=== PATIENT | female | born 1965 | race Caucasian/White ===

== ENCOUNTER 2017-04-13 06:51 | Day surgery (SDC) | payer BC ==
[2017-04-13] MEDS ORDERED: Lactated Ringers 1,000 ML IV SCH (07:30)
[2017-04-13] MEDS ORDERED: Midazolam 1 MG/ML 2 ML SDV IV ONE (08:00)
[2017-04-13] MEDS ORDERED: Lidocaine 2% 100 MG/5 ML Syringe IVPUSH ONE (08:00)
[2017-04-13] MEDS ORDERED: Propofol 200 MG/20 ML SDV IV ONE (08:00)
--- NOTE | 2017-04-13 08:24 | PCM.OPNOTE ---
- General Post-Op/Procedure Note Date of Surgery/Procedure: 04/13/17 Operative Procedure(s): c scope Findings: normal exam Pre Op Diagnosis: screening for colon cancer Post-Op Diagnosis: nl scope Anesthesia Technique: MAC Primary Surgeon: Raji Lawler Anesthesia Provider: Sharon Figueredo Pathology: none Complications: None Condition: Good Free Text/Narrative:: see dictation
[2017-04-13 09:12] VITALS: BP 147/97
--- NOTE | 2017-04-13 10:09 | OR ---
DATE OF OPERATION: 04/13/2017 SURGEON: Raji Lawler MD PROCEDURE PERFORMED: Colonoscopy. PREOPERATIVE DIAGNOSIS: Colon cancer screening. POSTOPERATIVE DIAGNOSIS: Normal exam. INDICATIONS FOR PROCEDURE: This is a 52-year-old white female, who presents for initial screening colonoscopy. She was offered and accepted the same. DESCRIPTION OF OPERATION: After an excellent IV sedation was administered, digital rectal exam was performed. No marked abnormality was noted. The colonoscope was inserted and advanced without difficulty to the patient's cecum. The prep was excellent. The following findings were noted. Ascending colon, unremarkable. Transverse colon, unremarkable. Descending colon, unremarkable. Sigmoid and rectum, unremarkable. Colon was deflated as the scope was removed. The patient tolerated the procedure well was taken to recovery room in good condition. /[id number] SCARLET/KATHY
== END 2017-04-13 09:32 | disposition home or self-care (01) ==
LOC: FB.SDS 06:51
PROVIDERS: ATTEND Surgery
DX: Z12.11 Encounter for screening for malignant neoplasm of colon (principal); F32.9 Major depressive disorder, single episode, unspecified; E55.9 Vitamin D deficiency, unspecified; Z91.013 Allergy to seafood; Z79.82 Long term (current) use of aspirin; Z79.899 Other long term (current) drug therapy; Z98.890 Other specified postprocedural states
CPT/HCPCS: 45378; J2250; J2704; J7120

== ENCOUNTER 2024-04-09 16:21 | Emergency (ER) | payer BC, OTHER ==
[2024-04-09 16:42] VITALS: BP 117/84; PULSE 98
[2024-04-09] MEDS: LORazepam 2 MG/ML SDV IM ONE (16:49)
[2024-04-09] MEDS: Diphtheria,Pertussis(Acell),Tetanus Vaccine 0.5 ML Syringe IM ONE (16:59)
[2024-04-09] MEDS: Bacitracin Oint 1 GM U/D Packet TOP ONE (17:01)
[2024-04-09] MEDS: Lidocaine 1% 20 ML MDV INJECT ONE (17:03)
== END 2024-04-09 17:02 | disposition home or self-care (01) ==
LOC: FB.ED 16:21
DX: S61.217A Laceration without foreign body of left little finger without damage to nail, initial encounter (principal); Z23 Encounter for immunization; E66.9 Obesity, unspecified; Z68.31 Body mass index [BMI] 31.0-31.9, adult; Z91.013 Allergy to seafood; Z79.82 Long term (current) use of aspirin; Z79.899 Other long term (current) drug therapy; W27.2XXA Contact with scissors, initial encounter
CPT/HCPCS: 12001; 90471; 90715; 99282-25